=== PATIENT | male | born 1995 | race Caucasian/White ===

== ENCOUNTER 2017-04-23 00:40 | Emergency (ER) | payer OTHER ==
[~2017-04-23] VITALS: Ht 177.8 cm; Wt 61.2 kg
[2017-04-23 01:00] VITALS: BP 119/75
[2017-04-23] MEDS ORDERED: ONDANSETRON HCL/PF 4 MG/2 ML VIAL ONE (01:44)
[2017-04-23] MEDS: ONDANSETRON HCL/PF 4 MG/2 ML VIAL IM ONE (01:53)
== END 2017-04-23 01:58 | disposition home or self-care (01) ==
LOC: ER 00:43
DX: R11.2 Nausea with vomiting, unspecified (principal)
CPT/HCPCS: A4606; J2405; Z7610

== ENCOUNTER 2017-06-05 22:58 | Emergency (ER) | payer OTHER ==
[~2017-06-05] VITALS: Ht 175.3 cm; Wt 61.2 kg
[2017-06-06 00:18] VITALS: BP 157/95
== END 2017-06-06 01:08 | disposition home or self-care (01) ==
LOC: ER 23:07
DX: S39.012A Strain of muscle, fascia and tendon of lower back, initial encounter (principal); V49.59XA Passenger injured in collision with other motor vehicles in traffic accident, initial encounter; Y93.89 Activity, other specified; Y92.89 Other specified places as the place of occurrence of the external cause; Y99.9 Unspecified external cause status
CPT/HCPCS: 99282; A4606; Z7610

== ENCOUNTER 2017-09-30 23:17 | Emergency (ER) | payer OTHER ==
[~2017-09-30] VITALS: Ht 177.8 cm; Wt 61.2 kg
[2017-09-30 23:36] VITALS: BP 125/74
[2017-10-01] MEDS ORDERED: IBUPROFEN 400 MG TABLET PO ONE
[2017-10-01] MEDS ORDERED: IBUPROFEN 400 MG TABLET ONE (00:03)
[2017-10-01] MEDS ORDERED: SULFAMETH/TRIMETH 800/160 MG 1 UDTAB TABLET PO ONE ×2 (00:03)
[2017-10-01] MEDS ORDERED: CEPHALEXIN MONOHYDRATE 500 MG CAPSULE PO ONE ×2 (00:03)
--- NOTE | 2017-10-01 00:12 | NUR ---
Wound care done. Patient discharged to home in stable condition. Written and verbal after care instructions given. Patient verbalizes understanding of instruction. No further complaints.
== END 2017-10-01 00:13 | disposition home or self-care (01) ==
LOC: ER 23:19
DX: L03.011 Cellulitis of right finger (principal)
CPT/HCPCS: 99284; A4606; A6402; Z7610

== ENCOUNTER 2018-07-01 17:21 | Emergency (ER) | payer OTHER ==
[~2018-07-01] VITALS: Ht 185.4 cm; Wt 62.6 kg
[2018-07-01 17:21] VITALS: BP 131/77
[2018-07-01] MEDS ORDERED: TDAP [DIPH/PERTUSSIS/TET] 0.5 ML VIAL IM ONE ×2 (17:53→18:00)
[2018-07-01] MEDS ORDERED: LIDOCAINE 2% 20 ML MDV TP ONE (18:00)
[2018-07-01] MEDS ORDERED: LIDOCAINE 2% 20 ML MDV ONE (18:03)
== END 2018-07-01 18:41 | disposition home or self-care (01) ==
LOC: ER 17:30
DX: S61.215A Laceration without foreign body of left ring finger without damage to nail, initial encounter (principal); Z60.2 Problems related to living alone; W26.0XXA Contact with knife, initial encounter; Y93.89 Activity, other specified; Y92.89 Other specified places as the place of occurrence of the external cause; Y99.8 Other external cause status
CPT/HCPCS: 12001; 90471; 90715; 99283; A4606; A6403; J3490; Z7610